=== PATIENT | female | born 1990 | race Caucasian/White ===

== ENCOUNTER 2021-03-17 15:31 | Emergency (ER) | payer OTHER ==
[~2021-03-17] VITALS: Ht 160 cm; Wt 71.7 kg
[~2021-03-17 15:31] MED LIST: ATEN50TA8 PO; ESCI20TA PO
[2021-03-17 15:42] VITALS: BP 132/94
--- NOTE | 2021-03-17 15:48 | NUR ---
Pt to wait in lobby for next available bed
[2021-03-17] MEDS ORDERED: ONDANSETRON 4 MG ODT PO ONE (16:05)
[2021-03-17] MEDS ORDERED: ONDA-188 SL (17:16)
[2021-03-17] MEDS ORDERED: CYCL-711 PO (17:16)
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
[2021-03-17 17:47] VITALS: BP 132/94
--- NOTE | 2021-03-17 17:47 | NUR ---
Patient discharged with v/s stable. Written and verbal after care instructions given and explained. Patient alert, oriented and verbalized understanding of instructions. Ambulatory to car ([facility]). All questions addressed prior to discharge. ID band removed. Patient advised to follow up with PMD. Rx of given. Patient educated on indication of medication including possible reaction and side effects. Opportunity to ask questions provided and answered. RX: CYCLOBENZAPRINE, ZOFRAN (SENT)
== END 2021-03-17 17:47 | disposition home or self-care (01) ==
LOC: MED 15:31
DX: S06.0X9A Concussion with loss of consciousness of unspecified duration, initial encounter (principal); Z88.0 Allergy status to penicillin; Z88.5 Allergy status to narcotic agent; Z79.899 Other long term (current) drug therapy; Z98.890 Other specified postprocedural states; W20.8XXA Other cause of strike by thrown, projected or falling object, initial encounter; Y93.89 Activity, other specified; Y92.89 Other specified places as the place of occurrence of the external cause; Y99.8 Other external cause status
CPT/HCPCS: 70450; 72125; 81025; 99285; Q0162

== ENCOUNTER 2021-07-15 10:55 | Emergency (ER) | payer OTHER ==
[~2021-07-15] VITALS: Ht 157.5 cm; Wt 66.9 kg
[~2021-07-15 10:55] MED LIST changes: +CYCL-711 PO; +ONDA-188 SL
[2021-07-15 11:22] VITALS: BP 141/94
--- NOTE | 2021-07-15 11:29 | NUR ---
PT AMB TO BED 8
--- NOTE | 2021-07-15 11:55 | NUR ---
DR ARREOLA AT BEDSIDE.
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
[2021-07-15] MEDS: KETOROLAC 60 MG/2 ML VIAL IM ONE (12:10)
[2021-07-15] MEDS: PROCHLORPERAZINE 10 MG/2 ML VIAL IM ONE (12:10)
[2021-07-15] MEDS ORDERED: PROC-66 PO (13:00)
--- NOTE | 2021-07-15 13:10 | NUR ---
Patient discharged with v/s stable. Written and verbal after care instructions given and explained. Patient alert, oriented and verbalized understanding of instructions. Ambulatory with steady gait. All questions addressed prior to discharge. ID band removed. Patient advised to follow up with PMD. Rx of PROCHLORPERAZINE MALEATE given. Opportunity to ask questions provided and answered.
--- NOTE | 2021-07-15 13:11 | NUR ---
Chart checked and completed. The patient's care was reviewed and supervised by Annabelle Edouard RN.
== END 2021-07-15 13:09 | disposition home or self-care (01) ==
LOC: MED 10:55
DX: S70.12XA Contusion of left thigh, initial encounter (principal); G43.909 Migraine, unspecified, not intractable, without status migrainosus; I51.9 Heart disease, unspecified; Z88.5 Allergy status to narcotic agent; Z88.0 Allergy status to penicillin; W19.XXXA Unspecified fall, initial encounter; Y93.89 Activity, other specified; Y92.89 Other specified places as the place of occurrence of the external cause; Y99.8 Other external cause status
CPT/HCPCS: 96372; 99284; J0780; J1885